=== PATIENT | female | born 1965 | race Caucasian/White ===

== ENCOUNTER 2017-04-09 11:31 | Emergency (ER) | payer SELFPAY ==
[2017-04-09] MEDS ORDERED: NORMAL SALINE 1000 ML 1,000 ML IV ONE (12:16)
--- NOTE | 2017-04-09 12:18 | ER Document Report ---
ED Medical Screen (RME) - General Chief Complaint: High Blood Sugar Stated Complaint: VOMITTING Time Seen by Provider: 04/09/17 12:11 Notes: This 51-year-old insulin-dependent diabetic female visiting from [facility] reports about 2 week history of blood sugars running high between 170 and 400. This morning about 4 AM she developed nausea and vomiting with her blood sugar reading "High" She has been insulin-dependent for 24 years. I have greeted and performed a rapid initial assessment of this patient. A comprehensive ED assessment and evaluation of the patient, analysis of test results and completion of the medical decision making process will be conducted by additional ED providers. TRAVEL OUTSIDE OF THE [place] IN LAST 30 DAYS: No - Related Data Allergies/Adverse Reactions: No Known Allergies Allergy (Verified 04/09/17 12:07) Past Medical History Renal/ Medical History: Denies: Hx Peritoneal Dialysis Physical Exam - Vital signs Vitals: Temp Pulse Resp BP Pulse Ox 98.4 F 93 18 122/64 99 04/09/17 11:41 04/09/17 11:41 04/09/17 11:41 04/09/17 11:41 04/09/17 11:41 Course - Vital Signs Vital signs: Temp Pulse Resp BP Pulse Ox 98.4 F 93 18 122/64 99 04/09/17 11:41 04/09/17 11:41 04/09/17 11:41 04/09/17 11:41 04/09/17 11:41
[2017-04-09 12:53] LABS: ABSOLUTE LYMPHOCYTES (AUTO) 1.6 10^3/uL (0.5-4.7); ABSOLUTE MONOCYTES (AUTO) 0.7 10^3/uL (0.1-1.4); ABSOLUTE NEUT (AUTO) 10.7 10^3/uL (1.7-8.2); BASOPHILS % (AUTO) 0.1 % (0-2); EOSINOPHILS % (AUTO) 0.1 % (0-6); HEMATOCRIT 39.3 % (36.0-47.0); HEMOGLOBIN 12.9 g/dL (12.0-15.5); HGB HCT DIFFERENCE -0.6; LYMPHOCYTES % (AUTO) 12.4 % (13-45); MEAN CORPUSCULAR HEMOGLOBIN 28.2 pg (27.0-33.4); MEAN CORPUSCULAR HGB CONC 32.8 g/dL (32.0-36.0); MEAN CORPUSCULAR VOLUME 86 fl (80-97); MONOCYTES % (AUTO) 5.3 % (3-13); RED BLOOD COUNT 4.58 10^6/uL (3.72-5.28); RED CELL DISTRIBUTION WIDTH 13.6 % (11.5-14.0); SEGMENTED NEUTROPHILS % (AUTO) 82.1 % (42-78)
[2017-04-09 13:06] LABS: ALANINE AMINOTRANSFERASE 31 U/L (9-52); ALBUMIN 4.4 g/dL (3.5-5.0); ALKALINE PHOSPHATASE 117 U/L (38-126); ASPARTATE AMINO TRANSFERASE 37 U/L (14-36); BILIRUBIN,DIRECT 0.5 mg/dL (0.0-0.4); BILIRUBIN,TOTAL 1.2 mg/dL (0.2-1.3); BLOOD UREA NITROGEN 30 mg/dL (7-20); CALCIUM 10.3 mg/dL (8.4-10.2); CARBON DIOXIDE 12 mmol/L (22-30); CHLORIDE 89 mmol/L (98-107); CREATININE RESULT 1.27 mg/dL (0.52-1.25); GLUCOSE 327 mg/dL (75-110); MAGNESIUM 1.6 mg/dL (1.6-2.3); POTASSIUM 5.3 mmol/L (3.6-5.0); TOTAL PROTEIN 7.3 g/dL (6.3-8.2)
[2017-04-09 13:12] LABS: APPEARANCE,URINE CLEAR; BILIRUBIN,URINE NEGATIVE (NEGATIVE); GLUCOSE, URINE >=500 mg/dL (NEGATIVE); KETONES,URINE 80 mg/dL (NEGATIVE); LEUKOCYTE ESTERASE,URINE NEGATIVE (NEGATIVE); NITRITE,URINE NEGATIVE (NEGATIVE); PROTEIN,URINE NEGATIVE (NEGATIVE); URINE SPECIFIC GRAVITY 1.014; UROBILINOGEN,URINE NEGATIVE mg/dL (<2.0)
[2017-04-09 13:36] LABS: SODIUM 128.6 mmol/L (137-145)
[2017-04-09 13:38] LABS: ANION GAP 28 (5-19)
--- NOTE | 2017-04-09 13:53 | ER Document Report ---
ED Blood Sugar Problem - General Chief Complaint: High Blood Sugar Stated Complaint: VOMITTING Time Seen by Provider: 04/09/17 12:11 Mode of Arrival: Ambulatory Information source: Patient TRAVEL OUTSIDE OF THE [place] IN LAST 30 DAYS: No - HPI D-stick result: 400 Similar symptoms previously: Yes Recently seen / treated by doctor: No - Patient last saw physician in November. Notes: Less than 51-year-old female presents with report of elevated blood sugars along with nausea and vomiting earlier today. She reports her sugars have been running slightly higher than usual. She thinks this is largely due to a change in her medications. She lost her insurance a few months ago and is no longer taking the 2 medications that are newer and quite expensive. Instead, she has found a source for regular insulin and she has been using variable doses, on a sliding scale, as she sees fit. Yesterday she noticed blood sugars at approximately 400. She took 25 units of regular insulin. She did not recheck her blood sugar following that. She reports she felt better. She woke at approximately 4 AM this morning, nauseous, and she began to vomit. This continued until 7 AM. She is no longer nauseous. She denies abdominal pain, before or currently. She denies any diarrhea. She reports she overall feels well at this time. He does report having one reading on her glucometer that said critical high. Her readings otherwise have been mostly around the 400 range. The patient is visiting this area from [place]. She will return to [place] April 16. - Related Data Allergies/Adverse Reactions: No Known Allergies Allergy (Verified 04/09/17 12:07) Past Medical History - Social History Smoking Status: Never Smoker Frequency of alcohol use: None Drug Abuse: None Family History: Reviewed & Not Pertinent, DM - Past Medical History Cardiac Medical History: Reports: Other Other: Diabetes Endocrine Medical History: Reports: Hx Diabetes Mellitus Type 2 Renal/ Medical History: Denies: Hx Peritoneal Dialysis Review of Systems - Review of Systems Notes: REVIEW OF SYSTEMS: CONSTITUTIONAL : Denies fever, chills, or sweats. Patient with elevated blood sugars. See HPI. EENT: Denies eye, ear, throat, or mouth pain or symptoms. Denies nasal or sinus congestion or discharge. Denies throat, tongue, or mouth swelling or difficulty swallowing. CARDIOVASCULAR: Denies chest pain. Denies palpitations or racing or irregular heart beat. Denies ankle edema. RESPIRATORY: Denies cough, cold, or chest congestion. Denies shortness of breath, difficulty breathing, or wheezing. GASTROINTESTINAL: Denies abdominal pain or distention. Patient has had vomiting, but no nausea currently. No diarrhea. GENITOURINARY: Denies difficulty urinating, painful urination, burning, frequency, blood in urine, or discharge. FEMALE GENITOURINARY: Denies vaginal bleeding, heavy or abnormal periods, irregular periods. Denies vaginal discharge or odor. MUSCULOSKELETAL: Denies back or neck pain or stiffness. Denies joint pain or swelling. SKIN: Denies rash, lesions or sores. HEMATOLOGIC : Denies easy bruising or bleeding. LYMPHATIC: Denies swollen, enlarged glands. NEUROLOGICAL: Denies confusion or altered mental status. ALL OTHER SYSTEMS REVIEWED AND NEGATIVE. Physical Exam - Vital signs Vitals: Temp Pulse Resp BP Pulse Ox 98.4 F 93 18 122/64 99 04/09/17 11:41 04/09/17 11:41 04/09/17 11:41 04/09/17 11:41 04/09/17 11:41 - Notes Notes: PHYSICAL EXAMINATION: GENERAL: Well-appearing, well-nourished and in no acute distress. HEAD: Atraumatic, normocephalic. ENT: Nares patent, oropharynx clear without exudates. Moist mucous membranes. NECK: Normal range of motion, supple without lymphadenopathy LUNGS: Breath sounds clear to auscultation bilaterally and equal. No wheezes rales or rhonchi. HEART: Regular rate and rhythm without murmurs ABDOMEN: Soft, nontender, nondistended abdomen. No guarding, no rebound. No masses appreciated. Female : deferred Musculoskeletal: Normal range of motion, no pitting or edema. No cyanosis. No CVA tenderness. NEUROLOGICAL: Cranial nerves grossly intact. Normal speech, normal gait. Normal sensory, motor exams PSYCH: Normal mood, normal affect. SKIN: Warm, Dry, normal turgor, no rashes or lesions noted. Course - Re-evaluation Re-evalutation: 04/09/17 14:03 Pleasant well-appearing 51-year-old female in no acute distress. She had nausea and vomiting earlier, but she has no ongoing symptoms. She has elevated blood sugars and limited ability to continue her more recent diabetes treatment. The patient used to be on Lantus as well. She and I have discussed the option of starting Lantus, but she does not think she can afford that medicine either. She may need to continue to use regular insulin more frequently and follow-up with her primary physician in [place]. She reports there is a clinic there that she can go to. I have encouraged the patient to check her blood sugars more often and keep a log in order to assist the physician she follows up with in determining appropriate medication levels. Patient appears insightful and resourceful and understands the plan. Review of blood tests has been done. Overall this is reasonable. Her glucose is elevated at 327. She is currently receiving 1 L of normal saline. I will treat her with 20 units of Lantus to give her some long-acting benefit. This is far less than her old dose of 50 units, but I do not want a risk significant hypoglycemia for the patient. She can continue to use regular as needed over the next 24 hours. 04/09/17 14:27 The patient's urine does not show any sign of infection. She does have ketones present. The patient looks well and does not appear to be having any difficulty with a DKA set of symptoms. I have asked the patient to allow a blood gas for further evaluation. She has declined this, in a very pleasant manner, and reports she feels well. After completion of the liter of IV fluids , we will recheck her blood sugar. As long as it is 325 or less, we will discharge her as planned. 04/09/17 16:21 Recheck of blood sugar shows a level of 412. The patient received approximately 500 mL's of normal saline. We will treat her with a small dose of regular insulin. Yesterday she took 25 units. Given that we gave her Lantus earlier, we will give her 10 units of regular now. 04/09/17 17:09 Recheck of glucose reveals 372. This is before the regular insulin that I had ordered a little while ago. The patient would like to be discharged now. She reports she will check her glucose at home. She has not thrown up at all in the emergency department and appears to be doing well. - Vital Signs Vital signs: Temp Pulse Resp BP Pulse Ox 98.0 F 89 16 135/53 H 98 04/09/17 17:15 04/09/17 17:17 04/09/17 17:17 04/09/17 17:17 04/09/17 17:17 - Laboratory Result Diagrams: 04/09/17 12:39 04/09/17 12:39 Laboratory results interpreted by me: 04/09/17 04/09/17 04/09/17 11:49 12:39 12:39 WBC 13.0 H Seg Neutrophils % 82.1 H Lymphocytes % 12.4 L Absolute Neutrophils 10.7 H Sodium 128.6 L Potassium 5.3 H Chloride 89 L Carbon Dioxide 12 L Anion Gap 28 H BUN 30 H Creatinine 1.27 H Est GFR ( Amer) 53 L Est GFR (Non-Af Amer) 44 L Glucose 327 H POC Glucose 399 H Calcium 10.3 H Direct Bilirubin 0.5 H AST 37 H Urine Glucose (UA) Urine Ketones 04/09/17 04/09/17 04/09/17 12:39 16:02 17:06 WBC Seg Neutrophils % Lymphocytes % Absolute Neutrophils Sodium Potassium Chloride Carbon Dioxide Anion Gap BUN Creatinine Est GFR ( Amer) Est GFR (Non-Af Amer) Glucose POC Glucose 412 H* 372 H Calcium Direct Bilirubin AST Urine Glucose (UA) >=500 H Urine Ketones 80 H Discharge - Discharge Clinical Impression: Hyperglycemia due to type 1 diabetes mellitus, Diabetes mellitus, Nausea & vomiting Condition: Good Disposition: HOME, SELF-CARE Instructions: Hyperglycemia ([facility]) Additional Instructions: Hyperglycemia (High Blood Sugar) You have an abnormally high blood sugar. It ranged from 327-400 in the emergency department. Continue to take your insulin, but keep track of your blood sugars and keep a log. We are writing a prescription for Lantus. Take 20 units once a day. This is not as high as your prior dose, but avoids increased risk of low blood sugars. Take regular insulin on a sliding scale as discussed: 200-249 take 4 units 250-299 take 6 units 300 - 349 take 8 units 350 - 399 take 10 units Above 400, take 12 units. Follow-up with Dr. Chisholm locally or with your physicians in [place]. Uncontrolled high blood sugar leads to early heart disease, strokes, nerve damage, eye damage, and kidney damage. Call the physician if there is faintness, excess sleepiness, or very rapid breathing. Prescriptions: Insulin Glargine,Hum.rec.anlog [Lantus] 20 unit SQ QHS #1 vial Referrals: ISMAEL CHISHOLM MD [ACTIVE STAFF] - Follow up in 3-5 days
[2017-04-09] MEDS ORDERED: INSULIN GLARGINE,HUM.REC.ANLOG 1,000 UNIT/10 ML UNIT SUBCUT ONE ×2 (14:07→15:13)
[2017-04-09] MEDS ORDERED: INSULIN REG, HUMAN 100 UNIT/ML 3 ML VIAL (PYX) SUBCUT ONE (16:22)
[2017-04-09 18:28] VITALS: BP 152/70
== END 2017-04-09 18:29 | disposition home or self-care (01) ==
LOC: ER 11:31
DX: E10.65 Type 1 diabetes mellitus with hyperglycemia (principal); R11.2 Nausea with vomiting, unspecified; E11.65 Type 2 diabetes mellitus with hyperglycemia; Z79.4 Long term (current) use of insulin
CPT/HCPCS: 99283; 96360; 36415; 82962; 83735; 85025; 80053; 81001; J1815 ×2; J7030

== ENCOUNTER → 2018-09-13 | Outpatient (CLI) | payer BC | LOC: OD 15:50 | PROVIDERS: ATTEND Psychiatry & Neurology Psychiatry | DX: F33.2 Major depressive disorder, recurrent severe without psychotic features (principal); Z79.899 Other long term (current) drug therapy | CPT/HCPCS: 36415; 84443 ==

== ENCOUNTER → 2019-01-12 | Outpatient (CLI) | payer BC ==
--- NOTE | 2019-01-12 10:20 | WOMENS IMAGING REPORT ---
EXAM DESCRIPTION: BILAT SCREENING MAMMO W/CAD COMPLETED DATE/TIME: 01/12/2019 9:51 am REASON FOR STUDY: ROUTINE BILATERAL SCREENING;Z12.31 Z12.31 ENCNTR SCREEN MAMMOGRAM FOR MALIGNANT N EOPLASM OF GISEL COMPARISON: None. EXAM PARAMETERS: Standard craniocaudal and mediolateral oblique views of each breast recorded using digital acquisition. Read with the assistance of CAD. .[facility] - [employer] Version 9.2 LIMITATIONS: None. FINDINGS: No suspicious masses, suspicious calcifications or architectural distortion. No areas of s uspicion. IMPRESSION: ASSESSMENT: Negative MAMMOGRAM. BIRADS 1 BREAST DENSITY: b. There are scattered areas of fibroglandular density. BIRAD: 1 NEGATIVE RECOMMENDATION: ROUTINE SCREENING COMMENT: The patient has been notified of the results by letter per SA requirements. Additional no tification policies are in place for contacting patient with suspicious or incomplete findings. Quality ID #[id number]: The [employer] recommends an annual screening mammogram for women aged 40 years or over. This facility utilizes a reminder system to ensure that all patients receive reminder letters, and/or direct phone calls for appointments. This includes reminders for routine scr eening mammograms, diagnostic mammograms, or other Breast Imaging Interventions when appropriate. Th is patient will be placed in the appropriate reminder system. TECHNICAL DOCUMENTATION: FINDING NUMBER: (1) ASSESSMENT: (1) JOB ID: [id number] [employer]- All Rights Reserved Reading location - IP/workstation name: [email or web address]
== END ==
LOC: WI 09:57
PROVIDERS: ATTEND Family Medicine Geriatric Medicine
DX: Z12.31 Encounter for screening mammogram for malignant neoplasm of breast (principal)
CPT/HCPCS: 77067